=== PATIENT | female | born 1940 | race Caucasian/White ===

== ENCOUNTER → 2018-03-16 15:15 | Outpatient (CLI) | payer MEDICARE, SELFPAY ==
--- NOTE | 2018-03-16 15:15 | FLU_PTH ---
PATIENT: GERARDO GARDNER [facility][id number] AGE/SX: 84/F ROOM: RE03/16/[address]: Dr. Deepak Hidalgo MD : 1940 BED: DIS: SPEC #: [id number] RECD: 03/16/18 18:15 STATUS: JAIME OLGA #: [id number] CARI: 03/16/18 15:[address]: Deepak Hidalgo DEPT: CYTOLOGY RECD BY: Tony Smith Tissues: Neck, NOS Procedures: Special Stain Group II Surgery Specimen Level IV Cytospin Fluid HEADER OPERATION: Fine needle aspiration right neck mass PRE-OP DIAGNOSIS: Localized swelling, mass and lump, right neck TISSUE SUBMITTED: Fine needle aspiration right neck mass DIAGNOSIS CYTOLOGY Right neck mass, FNA (cytospin and cell block): Negative for malignant cells. See cytology study and comment. SJ:devorah 03/20/18 COMMENT Correlation with clinical findings and appropriate follow up are necessary. CYTOLOGY STUDY Slides are reviewed. The specimen is paucicellular, bloody and consists of a few macrophages, suggestive of cyst content. CYTOLOGY GROSS Received is 23 ml of brown cloudy fluid labeled with the patient's name and and designated per the requisition as right neck mass. Submitted for cytology preparation including cell block. 03/17/18 TC:5 CPT: 90198, 08069
== END ==
PROVIDERS: Referring Provider Otolaryngology; Visit Provider Otolaryngology
DX: R22.1 Localized swelling, mass and lump, neck (principal)
CPT/HCPCS: 88108; 88305; 88313

== ENCOUNTER → 2021-03-02 18:23 | Outpatient (CLI) | payer MEDICARE, SELFPAY ==
--- NOTE | 2021-03-02 | FLU_PTH ---
PAT[facility]NER [id number] AGE/SX: 84/F ROOM: RE03/02/[address]: Dr. Deepak Hidalgo MD : 1940 BED: DIS: SPEC #: [id number] RECD: 03/02/21 17:55 STATUS: JAIME OLGA #: [id number] CARI: 03/02/21 00:[address]: Deepak Hidalgo DEPT: CYTOLOGY RECD BY: Robin Lewis Tissues: Parotid gland, NOS Procedures: Special Stain Group II Surgery Specimen Level IV Cytospin Fluid HEADER OPERATION: Fine needle aspiration, left parotid cyst PRE-OP DIAGNOSIS: Recurrent cyst left parotid TISSUE SUBMITTED: Left parotid mass fluid for cytology DIAGNOSIS CYTOLOGY Fine needle aspiration, left parotid mass (cytospin and cell block): Negative for malignant cells. See comment. AM:devorah 03/04/2021 COMMENT The specimen contains amorphous proteinaceous debris in blood. Clinical correlation is suggested. CYTOLOGY STUDY Slides are reviewed. CYTOLOGY GROSS Received is 45 ml of yellow cloudy fluid labeled with the patient's name and and designated per the requisition as left parotid mass. Submitted for cytology preparation including cell block. / devorah 03/03/2021 TC:5 CPT: 05444, 05006
== END ==
PROVIDERS: Referring Provider Otolaryngology; Visit Provider Otolaryngology
DX: R22.1 Localized swelling, mass and lump, neck (principal)
CPT/HCPCS: 87070; 87205; 88108; 88305; 88313